=== PATIENT | female | born 1990 | race American Indian/Alaskan Native ===

== ENCOUNTER 2016-11-20 05:51 | Inpatient (IN) | payer MEDICAID, OTHER ==
[2016-11-20] MEDS ORDERED: Naloxone 2 MG/2 ML Syringe IVPUSH PRN (06:15)
[2016-11-20] MEDS ORDERED: Carboprost Tromethamine 250 MCG/1 ML Amp IM ONE (06:15)
[2016-11-20] MEDS ORDERED: Methylergonovine 0.2 MG/1 ML Amp IM PRN (06:15)
[2016-11-20] MEDS ORDERED: ePHEDrine 50 MG/ML SDV IVPUSH PRN (06:15)
[2016-11-20] MEDS ORDERED: Acetaminophen 325 MG Tab PO PRN (06:15)
[2016-11-20] MEDS ORDERED: Measles, Mumps & Rubella Vaccine 0.5 ML SDV SUBCUT ONE (06:15)
[2016-11-20] MEDS ORDERED: Oxytocin/Normal Saline 30 UNIT/500 ML BAG IV SCH (06:15)
[2016-11-20] MEDS ORDERED: Citric Acid/Sodium Citrate Solution 30 ML Cup PO ONE ×2 (06:15→08:18)
[2016-11-20] MEDS ORDERED: ceFAZolin 2 GM in Premix Bag 1 BAG IV ONE (06:15)
[2016-11-20] MEDS ORDERED: Misoprostol 400 MCG (4 X 100 MCG TAB) RECTAL PRN (06:15)
[2016-11-20] MEDS ORDERED: Ondansetron 4 MG/2 ML SDV IV PRN (06:15)
[2016-11-20] MEDS ORDERED: diphenhydrAMINE 50 MG/ML SDV IVPUSH PRN (06:15)
[2016-11-20] MEDS: Lactated Ringers 1,000 ML IV SCH ×4 (07:28→17:57)
[2016-11-20] MEDS ORDERED: Oxytocin/Normal Saline 60 UNIT/1,000 ML BAG ONE (08:56)
--- NOTE | 2016-11-20 10:51 | PCM.PREANE ---
Preanesthetic Assessment - Anesthesia/Transfusion/Family Hx Anesthesia History: Prior Anesthesia Without Reaction Family History of Anesthesia Reaction: No Transfusion History: Prior Transfusion Without Reaction Intubation History: Unknown - Review of Systems General: No Symptoms Pulmonary: No Symptoms Cardiovascular: No Symptoms Gastrointestinal: No symptoms Neurological: No Symptoms Other: Reports: None (Obesity ) - Physical Assessment NPO Status Date: 11/19/16 NPO Status Time: 22:30 Respiratory Rate: 16 Vital Signs: Last Vital Signs Temp 36.7 C 11/20/16 05:58 Pulse 82 11/20/16 05:58 Resp 16 11/20/16 05:58 BP 116/64 11/20/16 05:58 Pulse Ox Height: 1.8 m Weight: 134.263 kg ASA Class: 3 Mental Status: Alert & Oriented x3 Airway Class: Mallampati = 3 Dentition: Reports: Normal Dentition Thyro-Mental Finger Breadths: 2 (Short Neck) Mouth Opening Finger Breadths: 3 ROM/Head Extension: Full Lungs: Clear to auscultation, Normal respiratory effort Cardiovascular: Regular Rate, Regular Rhythm - Lab Values: Laboratory Last Values WBC 8.3 10^3/uL (5.0-10.0) 11/20/16 06:15 RBC 4.39 10^6/uL (4.2-5.4) 11/20/16 06:15 Hgb 11.9 g/dL (12.0-16.0) L 11/20/16 06:15 Hct 36.0 % (37.0-47.0) L 11/20/16 06:15 MCV 82.0 fL (80-100) 11/20/16 06:15 MCH 27.1 pg (27.0-34.0) 11/20/16 06:15 MCHC 33.1 g/dL (33.0-35.0) 11/20/16 06:15 Plt Count 201 10^3/uL (150-450) 11/20/16 06:15 Urine Opiates Screen Negative (NEGATIVE) 11/20/16 06:15 Ur Oxycodone Screen Negative (NEGATIVE) 11/20/16 06:15 Urine Methadone Screen Negative (NEGATIVE) 11/20/16 06:15 Ur Barbiturates Screen Negative (NEGATIVE) 11/20/16 06:15 U Tricyclic Antidepress Negative (NEGATIVE) 11/20/16 06:15 Ur Phencyclidine Scrn Negative (NEGATIVE) 11/20/16 06:15 Ur Amphetamine Screen Negative (NEGATIVE) 11/20/16 06:15 U Methamphetamines Scrn Negative (NEGATIVE) 11/20/16 06:15 Urine MDMA Screen Negative (NEGATIVE) 11/20/16 06:15 U Benzodiazepines Scrn Negative (NEGATIVE) 11/20/16 06:15 Urine Cocaine Screen Negative (NEGATIVE) 11/20/16 06:15 U Marijuana (THC) Screen Negative (NEGATIVE) 11/20/16 06:15 Blood Type A POSITIVE 11/20/16 06:15 Gel Antibody Screen Negative 11/20/16 06:15 - Allergies Allergies/Adverse Reactions: Allergies Allergy/AdvReac Type Severity Reaction Status Date / Time No Known Allergies Allergy Verified 11/20/16 07:09 - Blood Blood Available: No Product(s) Available: None - Anesthesia Plan Pre-Op Medication Ordered: None - Acknowledgements Anesthesia Type Planned: Spinal, MAC Pt an Appropriate Candidate for the Planned Anesthesia: Yes Alternatives and Risks of Anesthesia Discussed w Pt/Guardian: Yes Pt/Guardian Understands and Agrees with Anesthesia Plan: Yes PreAnesthesia Questionnaire - Past Health History Medical/Surgical History: Denies Medical/Surgical History KNOT TIER History: Reports: - Past Surgical History Other Musculoskeletal Surgeries/Procedures:: ankle surgeries - SUBSTANCE USE Smoking Status *Q: Former Smoker Second Hand Smoke Exposure: No Days Per Week of Alcohol Use: 1 Number of Drinks Per Day: 6 Total Drinks Per Week: 6 Recreational Drug Use History: Yes Recreational Drug Type: Reports: Amphetamines (Speed) - HOME MEDS Home Medications: Home Meds Pnv With Ca,No.72/Iron,Carb/FA [ Plus Iron Tablet] 1 tab PO DAILY [History] - CURRENT (IN HOUSE) MEDS Current Meds: Current Medications Acetaminophen (Tylenol) 650 mg PO Q6H PRN PRN Reason: mild pain or fever Diphenhydramine HCl (Benadryl) 25 mg IVPUSH Q6H PRN PRN Reason: Itching or Nausea Docusate Sodium (Colace) 100 mg PO Q12H PRN PRN Reason: Constipation Ephedrine Sulfate (Ephedrine Sulfate) 5 mg IVPUSH SEECOMMENT PRN PRN Reason: Other Ferrous Sulfate (Ferrous Sulfate) 325 mg PO BRK STEF Lactated Ringer's (Ringers, Lactated) 1,000 mls @ 125 mls/hr IV ASDIRECTED STEF Last Admin: 11/20/16 08:12 Dose: 125 mls/hr Oxytocin/Sodium Chloride (Pitocin In Ns 30 Unit/500 Ml) 30 unit in 500 mls @ 500 mls/hr IV TITRATE STEF; 500 MUNITS/MIN PRN Reason: Protocol Ibuprofen (Motrin) 800 mg PO Q8H PRN PRN Reason: mild pain or fever Ketorolac Tromethamine (Toradol) 15 mg IVPUSH Q6H [facility] Stop: 11/20/16 18:16 Methylergonovine Maleate (Methergine) 0.2 mg IM ONETIME PRN PRN Reason: Excessive Vaginal Bleeding Misoprostol (Cytotec) 800 mcg RECTAL ASDIRECTED PRN PRN Reason: Bleeding Naloxone HCl (Narcan) 0.1 mg IVPUSH SEECOMMENT PRN PRN Reason: Respiratory Depression Ondansetron HCl (Zofran) 4 mg IV Q4H PRN PRN Reason: Nausea/Vomiting Oxycodone/Acetaminophen (Percocet 325-5 Mg) 1 tab PO Q4H PRN PRN Reason: Pain (moderate 4-6) Oxycodone/Acetaminophen (Percocet 325-5 Mg) 2 tab PO Q4H PRN PRN Reason: Pain (moderate 4-6) Prenat Multivit/[employer] Research Analyst/Iron/Folic Ac ( Plus Iron) 1 each PO DAILY [facility] Simethicone (Simethicone) 80 mg PO Q4H PRN PRN Reason: Gas Discontinued Medications Carboprost Tromethamine (Hemabate Ds) 250 mcg IM ONETIME ONE Stop: 11/20/16 06:16 Citric Acid/Sodium Citrate (Bicitra Solution) 30 ml PO ONETIME ONE Stop: 11/20/16 06:16 Last Admin: 11/20/16 08:20 Dose: Not Given Citric Acid/Sodium Citrate (Bicitra Solution) 30 ml PO ONETIME ONE Stop: 11/20/16 08:19 Cefazolin Sodium/Dextrose 2 gm (/ Premix) 50 mls @ 100 mls/hr IV ONETIME ONE Stop: 11/20/16 06:44 Oxytocin/Sodium Chloride (Pitocin In Ns 30 Unit/500 Ml) Confirm Administered Dose 60 unit in 1,000 mls @ as directed .ROUTE .STK-MED ONE Stop: 11/20/16 08:57 Measles/Mumps/Rubella Vaccine Live (M-M-R Ii Vaccine) 0.5 ml SUBCUT .ONCE ONE Stop: 11/20/16 06:16
[2016-11-20] MEDS: Docusate Sodium 100 MG Cap PO PRN (14:01)
[2016-11-20] MEDS: Simethicone 80 MG Tab.Chew PO PRN ×2 (14:01→19:51)
[2016-11-20] MEDS: Ferrous Sulfate 325 MG Tab PO SCH ×2 (15:37→16:25)
[2016-11-20] MEDS: Prenatal Multivitamin with Calcium/Folic Acid/Iron Tab PO SCH ×2 (15:38→16:25)
[2016-11-20] MEDS ORDERED: Midazolam 1 MG/ML 2 ML SDV IV ONE (16:11)
[2016-11-20] MEDS ORDERED: ePHEDrine 50 MG/ML SDV IV ONE (16:11)
[2016-11-20] MEDS ORDERED: fentaNYL 100 MCG/2 ML SDV ONE (16:11)
[2016-11-20] MEDS ORDERED: Ondansetron 4 MG/2 ML SDV IV ONE (16:11)
[2016-11-20] MEDS ORDERED: Morphine PF 5 MG/10 ML SDV ONE (16:11)
[2016-11-20] MEDS ORDERED: Ketorolac 30 MG/ML SDV IVPUSH ONE (16:11)
[2016-11-20] MEDS: Ketorolac 30 MG/ML SDV IVPUSH SCH ×2 (17:23→23:23)
[2016-11-20] MEDS ORDERED: Ketorolac 30 MG/ML SDV IVPUSH SCH (17:30)
[2016-11-20] MEDS: Acetaminophen/oxyCODONE 325-5 MG Tab PO PRN ×2 (19:51→20:31)
[2016-11-21] MEDS: Lactated Ringers 1,000 ML IV SCH (02:08)
[2016-11-21] MEDS: Acetaminophen/oxyCODONE 325-5 MG Tab PO PRN ×6 (04:32→22:24)
[2016-11-21] MEDS: Simethicone 80 MG Tab.Chew PO PRN ×6 (04:32→19:36)
[2016-11-21] MEDS: Ketorolac 30 MG/ML SDV IVPUSH SCH (05:38)
[2016-11-21] MEDS: Prenatal Multivitamin with Calcium/Folic Acid/Iron Tab PO SCH (08:45)
[2016-11-21] MEDS: Ferrous Sulfate 325 MG Tab PO SCH (08:45)
[2016-11-21] MEDS: Docusate Sodium 100 MG Cap PO PRN ×2 (08:45→19:36)
--- NOTE | 2016-11-21 08:51 | PCM.PNPP ---
- General Info Date of Service: 11/21/16 (POD # 1 S/P Repeat Section) Functional Status: Reports: pain controlled, tolerating diet - Review of Systems General: Reports: No Symptoms HEENT: Reports: no symptoms Pulmonary: Reports: no symptoms Cardiovascular: Reports: No Symptoms Gastrointestinal: Reports: No symptoms Genitourinary: Reports: no symptoms Musculoskeletal: Reports: no symptoms Skin: Reports: no symptoms Neurological: Reports: No Symptoms Psychiatric: Reports: no symptoms - General Info Date of Service: 11/21/16 (POD # 1 S/P Repeat section) - Patient Data Vital Signs - most recent: Last Vital Signs Temp 96.3 F 11/21/16 04:41 Pulse 85 11/20/16 20:00 Resp 16 11/21/16 04:41 BP 118/68 11/21/16 04:41 Pulse Ox 97 11/21/16 04:41 Weight - most recent: 296 lb I&O - last 24 hours: Intake & Output 11/20/16 11/21/16 11/21/16 22:59 06:59 14:59 Intake Total 2600 1759 Output Total 1525 1350 Balance 1075 409 Lab Results - last 24 hrs: Laboratory Results - last 24 hr 11/21/16 Range/Units 05:45 WBC 7.0 (5.0-10.0) 10^3/uL RBC 3.70 L (4.2-5.4) 10^6/uL Hgb 10.0 L (12.0-16.0) g/dL Hct 30.5 L (37.0-47.0) % MCV 82.4 (80-100) fL MCH 27.0 (27.0-34.0) pg MCHC 32.8 L (33.0-35.0) g/dL Plt Count 149 L (150-450) 10^3/uL Med Orders - Current: Current Medications Acetaminophen (Tylenol) 650 mg PO Q6H PRN PRN Reason: mild pain or fever Diphenhydramine HCl (Benadryl) 25 mg IVPUSH Q6H PRN PRN Reason: Itching or Nausea Last Admin: 11/20/16 13:58 Dose: 25 mg Docusate Sodium (Colace) 100 mg PO Q12H PRN PRN Reason: Constipation Last Admin: 11/21/16 08:45 Dose: 100 mg Ephedrine Sulfate (Ephedrine Sulfate) 5 mg IVPUSH SEECOMMENT PRN PRN Reason: Other Ferrous Sulfate (Ferrous Sulfate) 325 mg PO BRK [facility] Last Admin: 11/21/16 08:45 Dose: 325 mg Lactated Ringer's (Ringers, Lactated) 1,000 mls @ 125 mls/hr IV ASDIRECTED STEF Last Admin: 11/21/16 02:08 Dose: 125 mls/hr Oxytocin/Sodium Chloride (Pitocin In Ns 30 Unit/500 Ml) 30 unit in 500 mls @ 500 mls/hr IV TITRATE STEF; 500 MUNITS/MIN PRN Reason: Protocol Last Titration: 11/20/16 14:30 Dose: 0 munits/min, 0 mls/hr Ibuprofen (Motrin) 800 mg PO Q8H PRN PRN Reason: mild pain or fever Methylergonovine Maleate (Methergine) 0.2 mg IM ONETIME PRN PRN Reason: Excessive Vaginal Bleeding Misoprostol (Cytotec) 800 mcg RECTAL ASDIRECTED PRN PRN Reason: Bleeding Ondansetron HCl (Zofran) 4 mg IV Q4H PRN PRN Reason: Nausea/Vomiting Oxycodone/Acetaminophen (Percocet 325-5 Mg) 1 tab PO Q4H PRN PRN Reason: Pain (moderate 4-6) Last Admin: 11/20/16 20:31 Dose: 1 tab Oxycodone/Acetaminophen (Percocet 325-5 Mg) 2 tab PO Q4H PRN PRN Reason: Pain (moderate 4-6) Last Admin: 11/21/16 08:45 Dose: 2 tab Prenat Multivit/[place]/Iron/Folic Ac ( Plus Iron) 1 each PO DAILY [facility] Last Admin: 11/21/16 08:45 Dose: 1 each Simethicone (Simethicone) 80 mg PO Q4H PRN PRN Reason: Gas Last Admin: 11/21/16 08:45 Dose: 80 mg Discontinued Medications Carboprost Tromethamine (Hemabate Ds) 250 mcg IM ONETIME ONE Stop: 11/20/16 06:16 Last Admin: 11/20/16 16:25 Dose: Not Given Citric Acid/Sodium Citrate (Bicitra Solution) 30 ml PO ONETIME ONE Stop: 11/20/16 06:16 Last Admin: 11/20/16 08:20 Dose: Not Given Citric Acid/Sodium Citrate (Bicitra Solution) 30 ml PO ONETIME ONE Stop: 11/20/16 08:19 Last Admin: 11/20/16 10:00 Dose: 30 ml Ephedrine Sulfate (Ephedrine Sulfate) 30 mg IV .STK-MED ONE Stop: 11/20/16 16:12 Fentanyl (Sublimaze) 100 mcg .XX .STK-MED ONE Stop: 11/20/16 16:12 Cefazolin Sodium/Dextrose 2 gm (/ Premix) 50 mls @ 100 mls/hr IV ONETIME ONE Stop: 11/20/16 06:44 Last Admin: 11/20/16 10:25 Dose: 100 mls/hr Oxytocin/Sodium Chloride (Pitocin In Ns 30 Unit/500 Ml) Confirm Administered Dose 60 unit in 1,000 mls @ as directed .ROUTE .STK-MED ONE Stop: 11/20/16 08:57 Ketorolac Tromethamine (Toradol) 15 mg IVPUSH Q6H [facility] Stop: 11/21/16 05:31 Last Admin: 11/21/16 05:38 Dose: 15 mg Ketorolac Tromethamine (Toradol) 30 mg IVPUSH .STK-MED ONE Stop: 11/20/16 16:12 Measles/Mumps/Rubella Vaccine Live (M-M-R Ii Vaccine) 0.5 ml SUBCUT .ONCE ONE Stop: 11/20/16 06:16 Midazolam HCl (Versed 1 Mg/Ml) 2 mg IV .STK-MED ONE Stop: 11/20/16 16:12 Morphine Sulfate (Duramorph Pf) 0.25 mg .XX .STK-MED ONE Stop: 11/20/16 16:12 Naloxone HCl (Narcan) 0.1 mg IVPUSH SEECOMMENT PRN PRN Reason: Respiratory Depression Stop: 11/20/16 12:00 Ondansetron HCl (Zofran) 8 mg IV .STK-MED ONE Stop: 11/20/16 16:12 - Infant Interaction Disposition, : to Nursery Infant Interaction: Holding Infant Feeding: Bottle Fed - Recovery Exam Fundal Tone: Firm Fundal Level: At Umbilicus Fundal Placement: Midline Lochia Amount: Small Lochia Color: Rubra/Red Perineum Description: Intact, Minimal Bruising/Swelling Urinary Elimination: Indwelling Catheter - Exam General: alert, oriented, cooperative, no acute distress HEENT: Pupils equal, Pupils reactive Neck: supple Lungs: Clear to auscultation, Normal respiratory effort Cardiovascular: Regular Rate, Regular Rhythm, No Murmurs Abdomen: bowel sounds present, soft, tenderness (Incisional discomfort) Extremities: no edema, normal pulses, no tenderness/swelling Skin: warm, dry, intact Wound/Incisions: dressing dry and intact, no drainage Neurological: no new focal deficit, normal speech Psy/Mental Status: alert, normal affect, normal mood - Problem List Review Problem List Initiated/Reviewed/Updated: Yes - Assessment Assessment:: POD/PPD # 1 S/P Repeat section Doing well Incisional pain Clear yellow urine with good output - Plan Plan:: Continue present care Remove jean baptiste catheter Increase ambulation Shower Oral pain medications.
[2016-11-21] MEDS: Ibuprofen 800 MG Tab PO PRN ×2 (13:13→22:25)
[2016-11-21] MEDS ORDERED: Diphtheria,Pertussis(Acell),Tetanus Vaccine 0.5 ML SDV IM ONE (17:22)
[2016-11-22] MEDS: Acetaminophen/oxyCODONE 325-5 MG Tab PO PRN ×4 (04:07→19:50)
[2016-11-22] MEDS: Ibuprofen 800 MG Tab PO PRN ×3 (06:04→21:18)
--- NOTE | 2016-11-22 07:57 | PCM.PNPP ---
- General Info Date of Service: 11/22/16 (PPD/POD # 2 S/P Repeat Section ) Functional Status: Reports: pain controlled, tolerating diet, ambulating, urinating, new symptoms (Dysuria since yesterday. Right calf discomfort to ankle ) - Review of Systems General: Reports: No Symptoms HEENT: Reports: no symptoms Pulmonary: Reports: no symptoms Cardiovascular: Reports: No Symptoms Gastrointestinal: Reports: No symptoms Genitourinary: Reports: no symptoms Musculoskeletal: Reports: leg pain (Right lower leg/ankle pain history of ORIF of right ankle in the past) Skin: Reports: no symptoms Neurological: Reports: No Symptoms Psychiatric: Reports: no symptoms - General Info Date of Service: 11/22/16 (PPD/POD # 2 S/P Repeat Section) - Patient Data Vital Signs - most recent: Last Vital Signs Temp 97.8 F 11/22/16 07:47 Pulse 69 11/22/16 07:47 Resp 16 11/22/16 07:47 BP 114/67 11/22/16 07:47 Pulse Ox 99 11/22/16 07:47 Weight - most recent: 296 lb I&O - last 24 hours: Intake & Output 11/21/16 11/22/16 11/22/16 22:59 06:59 14:59 Intake Total 1000 Balance 1000 Med Orders - Current: Current Medications Acetaminophen (Tylenol) 650 mg PO Q6H PRN PRN Reason: mild pain or fever Diphenhydramine HCl (Benadryl) 25 mg IVPUSH Q6H PRN PRN Reason: Itching or Nausea Last Admin: 11/20/16 13:58 Dose: 25 mg Docusate Sodium (Colace) 100 mg PO Q12H PRN PRN Reason: Constipation Last Admin: 11/21/16 19:36 Dose: 100 mg Ephedrine Sulfate (Ephedrine Sulfate) 5 mg IVPUSH SEECOMMENT PRN PRN Reason: Other Ferrous Sulfate (Ferrous Sulfate) 325 mg PO BRK [facility] Last Admin: 11/21/16 08:45 Dose: 325 mg Lactated Ringer's (Ringers, Lactated) 1,000 mls @ 125 mls/hr IV ASDIRECTED [facility] Last Admin: 11/21/16 02:08 Dose: 125 mls/hr Oxytocin/Sodium Chloride (Pitocin In Ns 30 Unit/500 Ml) 30 unit in 500 mls @ 500 mls/hr IV TITRATE STEF; 500 MUNITS/MIN PRN Reason: Protocol Last Titration: 11/20/16 14:30 Dose: 0 munits/min, 0 mls/hr Ibuprofen (Motrin) 800 mg PO Q8H PRN PRN Reason: mild pain or fever Last Admin: 11/22/16 06:04 Dose: 800 mg Methylergonovine Maleate (Methergine) 0.2 mg IM ONETIME PRN PRN Reason: Excessive Vaginal Bleeding Misoprostol (Cytotec) 800 mcg RECTAL ASDIRECTED PRN PRN Reason: Bleeding Ondansetron HCl (Zofran) 4 mg IV Q4H PRN PRN Reason: Nausea/Vomiting Oxycodone/Acetaminophen (Percocet 325-5 Mg) 1 tab PO Q4H PRN PRN Reason: Pain (moderate 4-6) Last Admin: 11/20/16 20:31 Dose: 1 tab Oxycodone/Acetaminophen (Percocet 325-5 Mg) 2 tab PO Q4H PRN PRN Reason: Pain (moderate 4-6) Last Admin: 11/22/16 04:07 Dose: 2 tab Prenat Multivit/[place]/Iron/Folic Ac ( Plus Iron) 1 each PO DAILY [facility] Last Admin: 11/21/16 08:45 Dose: 1 each Simethicone (Simethicone) 80 mg PO Q4H PRN PRN Reason: Gas Last Admin: 11/21/16 19:36 Dose: 80 mg Discontinued Medications Carboprost Tromethamine (Hemabate Ds) 250 mcg IM ONETIME ONE Stop: 11/20/16 06:16 Last Admin: 11/20/16 16:25 Dose: Not Given Citric Acid/Sodium Citrate (Bicitra Solution) 30 ml PO ONETIME ONE Stop: 11/20/16 06:16 Last Admin: 11/20/16 08:20 Dose: Not Given Citric Acid/Sodium Citrate (Bicitra Solution) 30 ml PO ONETIME ONE Stop: 11/20/16 08:19 Last Admin: 11/20/16 10:00 Dose: 30 ml Diphtheria/Tetanus/Acell Pertussis (Adacel) 0.5 ml IM .ONCE ONE Stop: 11/21/16 17:23 Last Admin: 11/21/16 17:50 Dose: 0.5 ml Ephedrine Sulfate (Ephedrine Sulfate) 30 mg IV .STK-MED ONE Stop: 11/20/16 16:12 Fentanyl (Sublimaze) 100 mcg .XX .STK-MED ONE Stop: 11/20/16 16:12 Cefazolin Sodium/Dextrose 2 gm (/ Premix) 50 mls @ 100 mls/hr IV ONETIME ONE Stop: 11/20/16 06:44 Last Admin: 11/20/16 10:25 Dose: 100 mls/hr Oxytocin/Sodium Chloride (Pitocin In Ns 30 Unit/500 Ml) Confirm Administered Dose 60 unit in 1,000 mls @ as directed .ROUTE .STK-MED ONE Stop: 11/20/16 08:57 Ketorolac Tromethamine (Toradol) 15 mg IVPUSH Q6H [facility] Stop: 11/21/16 05:31 Last Admin: 11/21/16 05:38 Dose: 15 mg Ketorolac Tromethamine (Toradol) 30 mg IVPUSH .STK-MED ONE Stop: 11/20/16 16:12 Measles/Mumps/Rubella Vaccine Live (M-M-R Ii Vaccine) 0.5 ml SUBCUT .ONCE ONE Stop: 11/20/16 06:16 Last Admin: 11/21/16 17:52 Dose: 0.5 ml Midazolam HCl (Versed 1 Mg/Ml) 2 mg IV .STK-MED ONE Stop: 11/20/16 16:12 Morphine Sulfate (Duramorph Pf) 0.25 mg .XX .STK-MED ONE Stop: 11/20/16 16:12 Naloxone HCl (Narcan) 0.1 mg IVPUSH SEECOMMENT PRN PRN Reason: Respiratory Depression Stop: 11/20/16 12:00 Ondansetron HCl (Zofran) 8 mg IV .STK-MED ONE Stop: 11/20/16 16:12 - Infant Interaction Disposition, : [place] in Room with Family Interaction: Holding Infant Infant Feeding: Bottle Fed Infant - Recovery Exam Fundal Tone: Firm Fundal Level: 1 Fingerbreadths Below Umbilicus Fundal Placement: Midline Lochia Amount: Small Lochia Color: Rubra/Red Perineum Description: Intact, Minimal Bruising/Swelling Episiotomy/Laceration: None Bladder Status: Voiding Urinary Elimination: Voided - Exam General: alert, oriented, cooperative, no acute distress HEENT: Pupils equal, Pupils reactive Neck: supple Lungs: Clear to auscultation, Normal respiratory effort Cardiovascular: Regular Rate, Regular Rhythm, No Murmurs Abdomen: bowel sounds present, soft, no tenderness, no distension Extremities: no tenderness/swelling, no calf tenderness, edema (2+ edema in each ankle Non tender to palpation in either calf No enlargement of either calf) , other (No ecchymosis or erythema) Skin: warm, dry, intact Wound/Incisions: healing well, dressing dry and intact, no drainage Neurological: no new focal deficit Psy/Mental Status: alert, normal affect, normal mood - Problem List Review Problem List Initiated/Reviewed/Updated: Yes - My Orders Last 24 Hours: My Active Orders 11/22/16 07:50 URINALYSIS W/MICROSCOPIC [UA W/MICROSCOPIC] [URIN] Timed - Assessment Assessment:: POD/PPD # 2 S/P Repeat section Doing well Incisional pain Dysuria Right lower leg pain which is from calf to ankle this feels better than yesterday with no erythema ecchymosis or enlargement. Non tender to palpation. Negative Homans sign - Plan Plan:: Continue present care U/A pending Watch symptoms of right leg if worsens or has increased edema or any changes will consider duplex doppler of leg tomorrow
[2016-11-22] MEDS: Ferrous Sulfate 325 MG Tab PO SCH (08:01)
[2016-11-22] MEDS: Prenatal Multivitamin with Calcium/Folic Acid/Iron Tab PO SCH (08:02)
[2016-11-22] MEDS: Simethicone 80 MG Tab.Chew PO PRN ×3 (08:02→19:50)
[2016-11-22] MEDS: Docusate Sodium 100 MG Cap PO PRN ×2 (08:03→19:49)
[2016-11-23] MEDS: Acetaminophen/oxyCODONE 325-5 MG Tab PO PRN ×2 (03:56→10:04)
[2016-11-23] MEDS: Ferrous Sulfate 325 MG Tab PO SCH (07:50)
[2016-11-23] MEDS: Docusate Sodium 100 MG Cap PO PRN (07:50)
[2016-11-23] MEDS: Ibuprofen 800 MG Tab PO PRN (07:50)
[2016-11-23] MEDS: Prenatal Multivitamin with Calcium/Folic Acid/Iron Tab PO SCH (08:33)
[2016-11-23 08:44] VITALS: BP 111/63
--- NOTE | 2016-11-23 08:58 | OR ---
DATE: 11/20/2016 PREOPERATIVE DIAGNOSES: 1. Intrauterine at 39 weeks by 23-5/7 weeks ultrasound. 2. Previous section. 3. Request for repeat low transverse section. 4. Positive urine drug screen for amphetamines on 10/19/2016, at [facility], negative upon admission. 5. Group B streptococcus positive. 6. Urinary tract infection in -treated. 7. Hepatitis C positive. 8. Insufficient care. 9. 3, para 2-0-0-2. POSTOPERATIVE DIAGNOSES: 1. Intrauterine at 39 weeks by 23-5/7 weeks ultrasound. 2. Previous section-delivered. 3. Request for repeat low transverse section. 4. Positive urine drug screen for amphetamines on 10/19/2016, at [facility], negative upon admission. 5. Group B streptococcus positive. 6. Urinary tract infection in -treated. 7. Hepatitis C positive. 8. Insufficient care. 9. 3, para 2-0-0-2. 10.Scar tissue superficial to the fascia with recommendation for LEAD RIDER to be available with next section if possible. PROCEDURE PERFORMED: NST followed by repeat low transverse . ANESTHESIA: Spinal. ESTIMATED BLOOD LOSS: 800 mL. IV FLUIDS: 1200 mL. URINE OUTPUT: 100 mL clear and yellow. START: 1045. UTERINE INCISION: 1053. DELIVERY: 1054. STOP: 1115. FINDINGS: Female, scores of 9 and 9, weight pending. DESCRIPTION OF PROCEDURE IN DETAIL: After proper consent was obtained, the patient was brought to the operating room where spinal anesthetic was administered. A Carcamo was placed in preop under sterile conditions. Abdomen was prepped and draped in normal sterile fashion with placed in the supine position with left lateral tilt. A skin incision was then made over lower abdomen in transverse Pfannenstiel-type fashion over previous scar. This was carried down to the fascia and scored in the midline. Subcutaneous tissue was raked laterally with Gray retractor and fascial incision was extended in transverse fashion using electrocautery. Of note, there was significant amount of scar tissue around this area. Luz Maria clamps x2 were then used to grasp the superior aspect of fascia, and rectus muscles were dissected from fascia using sharp and blunt technique. In a similar fashion, Luz Maria clamps x2 were used to grasp the inferior portion of the incision and rectus and pyramidalis muscles were dissected from the fascia using sharp and blunt technique. Rectus muscles were in midline with blunt technique. Abdominal cavity was entered in blunt technique and incision was extended superiorly and inferiorly using blunt technique. Terry O retractor was then introduced and used. Lower uterine segment was identified and curvilinear incision was made on the lower uterine segment at 1053 hours. Uterus was entered sharply. Uterine incision was then extended in a transverse fashion using blunt technique. Bulging bag of water was then ruptured bluntly. vertex was then delivered through the incision, followed by rest of the infant without difficulty. Mouth and nares were suctioned. Cord was doubly clamped and cut, and brought over to team. Then, approximately 10 mL of cord blood was obtained for labs. Placenta then delivered with gentle cord traction and fundal massage. Uterine cavity was then cleared of all blood clots and debris with lap sponge. Harris clamps were used to grasp the uterine incision. This was closed in a running locked fashion, tied at lateral margins with 1-0 Vicryl. Right at the midline, there was some bleeding and one [id number] stitch was applied and hemostasis reassured. First inspection of the uterine incision revealed hemostasis. Terry O retractor was then removed and paracolic gutters were then cleared of all blood clots and debris with lap sponge. Anterior cul-de-sac was then irrigated copiously. All blood clots and debris removed. Second and final inspection of the uterine incision and anterior cul-de-sac revealed hemostasis. Rectus muscles were then reapproximated in midline with a [id number] stitch using 1-0 Vicryl. Subfascial tissue was found to be hemostatic. Fascia closed in a running fashion, tied at lateral margins with 0 looped PDS. Subcutaneous tissue was irrigated copiously. Hemostasis was reassured. Skin was reapproximated with medium matt. Sterile Aquacel dressing was applied. Uterine fundus was firm and massaged at conclusion of the case around the umbilicus with obesity noted. No immediate complications noted. Sponge, lap, and needle were correct. The patient received 2 g of Ancef preoperatively. Pitocin per protocol, and will receive Toradol at the conclusion of the case for pain control. Mother and infant are currently stable at time of dictation. [facility] /[id number]
--- NOTE | 2016-11-23 09:10 | OBOUT ---
DATE: 11/20/2016 DATE AND TIME OF NST: Date: 11/20/2016. Time: 06:35 to 06:55. REASON FOR NST: 1. Intrauterine at 39 weeks by 23 and 5/7th weeks ultrasound. 2. Previous x2, requests repeat low transverse . 3. Positive UDS for amphetamines on 10/19/2016, at [facility]. 4. GBS positive. 5. UTI in the - treated. 6. Hep C positive. 7. Insufficient care. 8. 3, para P2-0-0-2. NST INTERPRETATION: During this time period, heart tone baseline is approximately 125 to 135, and there are at least two 15 x 15 beat per minute accelerations, making this strip reactive. It is also noted to be reassuring. Tocometer reveals potential of 4 to 5 contractions felt by the patient. ASSESSMENT/PLAN: 1. Non-stress test-reactive and reassuring. 2. Tocometer with contractions. PLAN: Please see admit history and physical for further details. We will plan on proceeding to the operating room for repeat low transverse after current case. Current case is ongoing as this is being dictated. To update her history and physical, blood pressure 116/64, heart rate 82, and temperature 98. The patient feels her contractions, and we will proceed as above. [facility] /[id number]
--- NOTE | 2016-11-23 18:08 | PCM.POSTAN ---
POST ANESTHESIA ASSESSMENT - MENTAL STATUS Mental Status: alert, oriented - VITAL SIGNS Pulse Rate: 90 SaO2: 98 Resp Rate: 20 Blood Pressure: 134/83 Temperature: 36.8 C - RESPIRATORY Respiratory Status: respiratory rate WNL, airway patent, O2 saturation stable - CARDIOVASCULAR CV Status: pulse rate WNL, blood pressure stable - GASTROINTESTINAL GI Status: no symptoms - PAIN Pain Score: 0 - POST OP HYDRATION Hydration Status: adequate & stable (Patient is recovering well sitting in bed. Deny nausea or pain.)
--- NOTE | 2016-11-24 09:44 | DISCH ---
ADMISSION DIAGNOSES: 1. Intrauterine at 39 weeks by 23-5/7 weeks' ultrasound. 2. Previous section x2, requests repeat low transverse section. 3. Positive urine drug screen for amphetamines on 10/19/2016, at [facility], negative upon admission. 4. Group B Streptococcus positive. 5. Urinary tract infection in the -treated. 6. Hepatitis C positive status. 7. Insufficient care. 8. 3, para 2-0-0-2, now 3, para 3-0-0-3. DISCHARGE DIAGNOSES: 1. Intrauterine at 39 weeks by 23-5/7 weeks' ultrasound-delivered. 2. Previous section x2, requests repeat low transverse section-delivered. 3. Positive urine drug screen for amphetamines on 10/19/2016, [facility], negative upon admission. 4. Group B Streptococcus positive. 5. Urinary tract infection in the -treated. 6. Hepatitis C positive status. 7. Insufficient care. 8. 3, para 2-0-0-2, now 3, para 3-0-0-3. 9. Significant scar tissue superficial to the fascia with recommendation for QUALITY ASSURANCE CALIBRATOR to be present with next delivery with section. 10.Anemia of acute blood loss with hemoglobin dropping down to 10 from 11.9, and thrombocytopenia with last platelet count being 149,000. PROCEDURE PERFORMED: NST, followed by repeat low transverse per Dr. Mccurdy. HISTORY OF PRESENT ILLNESS: Please see H and P. SUMMARY OF HOSPITAL COURSE: Patient was admitted on the above date with the above diagnoses, underwent an elective repeat low transverse under spinal anesthetic with an EBL of 800 mL, yielding a female with scores 9 and 9, weighing 7 pounds 5 ounces with significant amount of scar tissue superficial to fascia with recommendation noted as above. Postop day #1 and 2, please see progress notes done with Dr. Pinto. Postop day #3, date of discharge, the patient was tolerating p.o., ambulating, urinating, passing flatus, and requesting discharge. PHYSICAL EXAMINATION: Vital Signs: Last set of vitals updated and listed in the chart. Temperature 98.2, heart rate 68, blood pressure 124/68, respiratory rate is 18. Lungs: Clear to auscultation bilaterally. Heart: S1, S2. Regular rate and rhythm. Abdomen: Obese. Firm uterus around the umbilicus. Aquacel dressing appears dry and intact. No calf pain elicited. The patient did have some pressure with urination, had a urinalysis done, reviewed by Dr. Pinto, not concerning for infection with 0-5 white cells per high-power field. CONDITION ON DISCHARGE COMPARED TO CONDITION ON ADMISSION: Improved. DISCHARGE INSTRUCTIONS: Diet as tolerated. Activity, no lifting more than 10 to 20 pounds. No sit ups, straining, and pelvic rest for the next 6 weeks with immediate return to fertility discussed with the patient. Reasons to return or go to the emergency room discussed with the patient in detail including temperature greater than 100.4, foul-smelling discharge, red, hot tender breasts, or increased vaginal bleeding. DISCHARGE MEDICATIONS: 1. [id number] ibuprofen for pain. 2. Iron sulfate 325 b.i.d. x6 weeks. 3. Percocet 5/325 one to two q.6 hours p.r.n., #30, no refills. Discussed the use of this medications, adverse and wanted effects, as well as precautions with driving. FOLLOW UP: On 11/25/2016, for staple removal. I did discuss the importance of followup and ramifications of not doing so as well as reasons to return or go to the emergency room in regard to her . The patient understands and agrees with the above treatment plan. [facility] /[id number]
== END 2016-11-23 11:30 | disposition home or self-care (01) | DRG 765 ==
LOC: DL.MS 05:51 → EDSTATUS 09:30 → OBSVTOIN 10:54 → DL.MS 10:54
PROVIDERS: ADMIT Family Medicine; ATTEND Family Medicine
PROC: 10D00Z1 Extraction of Products of Conception, Low, Open Approach (ICD-10-PCS; principal; 2016-11-20)
DX: Z34.83 Encounter for supervision of other normal pregnancy, third trimester (principal); O34.211 Maternal care for low transverse scar from previous cesarean delivery; O98.42 Viral hepatitis complicating childbirth; D62 Acute posthemorrhagic anemia; O99.824 Streptococcus B carrier state complicating childbirth; O99.02 Anemia complicating childbirth; O72.3 Postpartum coagulation defects; B19.20 Unspecified viral hepatitis C without hepatic coma; Z86.59 Personal history of other mental and behavioral disorders; M79.661 Pain in right lower leg; D69.6 Thrombocytopenia, unspecified; Z87.891 Personal history of nicotine dependence; Z37.0 Single live birth; Z3A.39 39 weeks gestation of pregnancy
CPT/HCPCS: 01961; 36415; 59025; 80305; 81001; 85027; 86850; 86900; 86901; 90707; 90715; A9270-GY; J0690; J1200; J1885; J2250; J2274; J2405; J2590; J3010; J7120

== ENCOUNTER 2017-03-10 21:38 | Emergency (ER) | payer MEDICAID, OTHER ==
[2017-03-10 22:11] VITALS: BP 101/65
[2017-03-10 22:24] LABS: CHLORIDE,CL 112 mmol/L (101-111); SODIUM,NA 147 mmol/L (135-145)
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
== END 2017-03-11 00:04 | disposition left against medical advice (07) ==
LOC: DL.ED 21:38
DX: F10.129 Alcohol abuse with intoxication, unspecified (principal); M25.511 Pain in right shoulder; R21 Rash and other nonspecific skin eruption; Y90.8 Blood alcohol level of 240 mg/100 ml or more; V89.2XXA Person injured in unspecified motor-vehicle accident, traffic, initial encounter
CPT/HCPCS: 36415; 70450; 72125; 73020; 80053; 80305; 81025; 85025; 99284; G0480

== ENCOUNTER 2019-04-18 23:59 | Emergency (ER) | payer MEDICAID ==
[2019-04-19 00:42] LABS: ANION GAP 11.6; CHLORIDE,CL 101 mmol/L (101-111); SODIUM,NA 136 mmol/L (135-145)
[2019-04-19] MEDS ORDERED: Vancomycin 2 GM in Sodium Chloride 0.9% 500 ML IV ONE (00:58)
--- NOTE | 2019-04-19 01:04 | EDM.PDOC ---
ED HPI GENERAL MEDICAL PROBLEM - General Chief Complaint: Skin Complaint Stated Complaint: AMBULANCE Time Seen by Provider: 04/19/19 00:35 Source of Information: Reports: Patient History Limitations: Reports: No Limitations - History of Present Illness INITIAL COMMENTS - FREE TEXT/NARRATIVE: This 28 yo female patient reports to the ED with left lower abdomen pain and inflammation. The patient reports she thinks she was bitten by a spider on , was seen in the ED on 04/16/19, was given a dose of IV Vanco on 04/16/19 and discharged with scripts for Clindamycin and Doxycycline. The patient reports she has been taking the medications as prescribed, but has noticed increased pain and redness throughout the left lower abdomen. The patient called the ambulance today due to increased symptoms. The patient reports she does have a history of MRSA. Onset Date: 04/15/19 Duration: Constant, Getting Worse Location: Reports: Abdomen (left lower abdomen) Quality: Reports: Ache, Sharp, Stabbing Severity: Severe Improves with: Reports: None Worsens with: Reports: None Context: Reports: Other Associated Symptoms: Reports: No Other Symptoms Treatments IMPOSER: Reports: Acetaminophen, NSAIDS Left Lower Abdomen Pain Score (Numeric/FACES): 7 - Related Data Allergies Allergy/AdvReac Type Severity Reaction Status Date / Time No Known Allergies Allergy Verified 04/19/19 00:19 Home Meds: Home Meds Ferrous Sulfate [Iron] 325 mg PO DAILY 04/19/19 [History] Past Medical History - Past Health History Medical/Surgical History: Denies 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: Endocrine/Metabolic History: Reports: Obesity/BMI 30+ - Infectious Disease History Infectious Disease History: Reports: MRSA - Past Surgical History Other Musculoskeletal Surgeries/Procedures:: ankle surgeries Social & Family History - Family History Family Medical History: Unobtainable - Tobacco Use Smoking Status *Q: Light Tobacco Smoker Years of Tobacco use: 10 Packs/Tins Daily: 0.4 - Caffeine Use Caffeine Use: Reports: Soda - Recreational Drug Use Drug Use in Last 12 Months: Yes Recreational Drug Type: Reports: Methamphetamine - Living Situation & Occupation Living situation: Reports: with Family Occupation: Unemployed ED ROS GENERAL - Review of Systems Review Of Systems: ROS reveals no pertinent complaints other than HPI. ED EXAM, SKIN/RASH Exam: See Below Exam Limited By: No Limitations General Appearance: Alert, Moderate Distress, Obese Eye Exam: Bilateral Eye: EOMI, Normal Inspection, PERRL Ears: Normal External Exam, Normal Canal, Hearing Grossly Normal, Normal TMs Nose: Normal Inspection, Normal Mucosa, No Blood Throat/Mouth: Normal Inspection, Normal Lips, Normal Teeth, Normal Gums, Normal Oropharynx, Normal Voice, No Airway Compromise Head: Atraumatic, Normocephalic Neck: Normal Inspection, Supple, Non-Tender, Full Range of Motion Respiratory/Chest: No Respiratory Distress, Lungs Clear, Normal Breath Sounds, No Accessory Muscle Use, Chest Non-Tender Cardiovascular: Normal Peripheral Pulses, Regular Rate, Rhythm, No Edema, No Gallop, No JVD, No Murmur, No Rub GI/Abdominal: Normal Bowel Sounds, Tender (left lower abdomen (area of induration measuring 7 inches by 4 inches) with surrounding erythematous tissue) (Female) Exam: Deferred Rectal (Female) Exam: Deferred Back Exam: Normal Inspection, Full Range of Motion, NT Extremities: Normal Inspection, Normal Range of Motion, Non-Tender, No Pedal Edema, Normal Capillary Refill Neurological: Alert, Oriented, CN II-XII Intact, Normal Cognition, Normal Gait, Normal Reflexes, No Motor/Sensory Deficits Psychiatric: Normal Affect, Normal Mood Skin: Erythema (LLQ), Increased Warmth (LLQ) Location, Skin: Abdomen (LLQ) Characteristics: Erythematous, Other Associated features: Warmth, Tenderness, Induration (7 inches by 4 inches), Inflammation. No: Crusting, Weeping Lymphatic: No Adenopathy Course - Vital Signs Last Recorded V/S: Last Vital Signs Temp 37.2 C 04/19/19 00:04 Pulse 112 H 04/19/19 00:04 Resp 18 04/19/19 00:04 BP 115/89 04/19/19 00:04 Pulse Ox 97 04/19/19 00:04 - Orders/Labs/Meds Orders: Active Orders 24 hr Category Date Time Status CULTURE BLOOD [BC] Stat Lab 04/19/19 00:14 Received CULTURE BLOOD [BC] Stat Lab 04/19/19 00:39 Received Vancomycin 2 gm Med 04/19/19 00:58 Ordered Sodium Chloride 0.9% [Normal Saline] 500 ml IV ONETIME Blood Culture x2 Reflex Set [OM.PC] Stat Oth 04/19/19 00:10 Ordered Labs: Laboratory Tests 04/19/19 04/19/19 04/19/19 Range/Units 00:14 00:14 00:14 WBC 13.5 H (5.0-10.0) 10^3/uL RBC 4.15 L (4.2-5.4) 10^6/uL Hgb 9.4 L (12.0-16.0) g/dL Hct 30.1 L (37.0-47.0) % MCV 72.5 L (80-100) fL MCH 22.7 L (27.0-34.0) pg MCHC 31.2 L (33.0-35.0) g/dL Plt Count 283 (150-450) 10^3/uL Neut % (Auto) 77.4 H (42.2-75.2) % Lymph % (Auto) 11.9 L (20.5-50.1) % [place] % (Auto) 8.0 (2-8) % Eos % (Auto) 2.5 (1.0-3.0) % Baso % (Auto) 0.2 (0.0-1.0) % Sodium 136 (135-145) mmol/L Potassium 3.6 (3.6-5.0) mmol/L Chloride 101 (101-111) mmol/L Carbon Dioxide 27.0 (21.0-31.0) mmol/L Anion Gap 11.6 BUN 7 (7-18) mg/dL Creatinine 0.6 (0.6-1.3) mg/dL Est Cr Clr Drug Dosing 154.63 mL/min Estimated GFR (MDRD) > 60 BUN/Creatinine Ratio 11.66 Glucose 122 H (74-105) mg/dL Lactic Acid 1.1 (0.5-2.2) mmol/L Calcium 8.2 L (8.4-10.2) mg/dl Total Bilirubin 0.6 (0.2-1.0) mg/dL AST 15 (10-42) IU/L ALT 12 (10-60) IU/L Alkaline Phosphatase 72 (42-121) IU/L Total Protein 7.2 (6.7-8.2) g/dl Albumin 3.0 L (3.2-5.5) g/dl Globulin 4.2 Albumin/Globulin Ratio 0.71 Departure - Departure Time of Disposition: 01:04 Disposition: DC/Tfer to Acute Hospital 02 Condition: Poor Clinical Impression: Cellulitis of left abdominal wall, Abscess - Discharge Information *PRESCRIPTION DRUG MONITORING PROGRAM REVIEWED*: Not Applicable *COPY OF PRESCRIPTION DRUG MONITORING REPORT IN PATIENT SHANNAN: Not Applicable Care Plan Goals: Discussed the patient's history, previous visit, treatments, progression of symptoms and lab results with Dr. Haines (Hospitalist with [facility] in [place]) . Dr. Haines accepted the patient for continued evaluation and further management as an observation patient at [facility] in [place]. The patient was given IV Vancomycin prior to transport to [facility] in [place]. The patient will be transported by [facility]. - My Orders Last 24 Hours: My Active Orders 04/19/19 00:10 Blood Culture x2 Reflex Set [OM.PC] Stat 04/19/19 00:14 CULTURE BLOOD [BC] Stat 04/19/19 00:39 CULTURE BLOOD [BC] Stat 04/19/19 00:58 Vancomycin 2 gm Sodium Chloride 0.9% [Normal Saline] 500 ml IV ONETIME - Assessment/Plan Last 24 Hours: My Active Orders 04/19/19 00:10 Blood Culture x2 Reflex Set [OM.PC] Stat 04/19/19 00:14 CULTURE BLOOD [BC] Stat 04/19/19 00:39 CULTURE BLOOD [BC] Stat 04/19/19 00:58 Vancomycin 2 gm Sodium Chloride 0.9% [Normal Saline] 500 ml IV ONETIME
[2019-04-19 01:06] VITALS: BP 111/66; PULSE 109
== END 2019-04-19 01:28 ==
LOC: DL.ED 23:59
DX: L02.211 Cutaneous abscess of abdominal wall (principal); L03.311 Cellulitis of abdominal wall; F17.210 Nicotine dependence, cigarettes, uncomplicated; E66.9 Obesity, unspecified; Z68.36 Body mass index [BMI] 36.0-36.9, adult; Z79.899 Other long term (current) drug therapy
CPT/HCPCS: 36415; 80053; 83605; 85025; 87040; 96365; 99285; J3370; J7040

== ENCOUNTER 2019-07-20 15:34 | Emergency (ER) | payer MEDICAID ==
[2019-07-20 15:39] VITALS: BP 156/124; PULSE 94
[2019-07-20] MEDS ORDERED: LORazepam 2 MG/ML Syringe IM ONE (15:53)
[2019-07-20 16:29] LABS: ANION GAP 14.4; CHLORIDE,CL 104 mmol/L (101-111); SODIUM,NA 139 mmol/L (135-145)
--- NOTE | 2019-07-20 17:24 | EDM.PDOCBH ---
Scribed by Jyothi You 07/20/19 [id number] for Dimitrios Frank MD ED HPI GENERAL MEDICAL PROBLEM - General Chief Complaint: Behavioral/Psych Stated Complaint: AMBULANCE Time Seen by Provider: 07/20/19 15:36 Source of Information: Reports: Patient, EMS, EMS Notes Reviewed, RN, RN Notes Reviewed - History of Present Illness INITIAL COMMENTS - FREE TEXT/NARRATIVE: Patient presents to the ER by [facility] with bad anxiety that started at 12:00. She can't relax so chest is tight, thinks her heart is racing, and states was going to lay down when this started. She denies pain. 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 ED EXAM, BEHAVIORAL HEALTH - Physical Exam Exam: See Below Exam Limited By: No Limitations General Appearance: Alert, WD/WN, No Apparent Distress Eye Exam: Bilateral Eye: EOMI, Normal Inspection, PERRL Ears: Normal External Exam, Normal Canal, Hearing Grossly Normal, Normal TMs Nose: Normal Inspection, Normal Mucosa, No Blood Throat/Mouth: Normal Inspection, Normal Lips, Normal Teeth, Normal Gums, Normal Oropharynx, Normal Voice, No Airway Compromise Head: Atraumatic, Normocephalic Neck: Normal Inspection, Supple, Non-Tender, Full Range of Motion Respiratory/Chest: No Respiratory Distress, Lungs Clear, Normal Breath Sounds, No Accessory Muscle Use, Chest Non-Tender Cardiovascular: Normal Peripheral Pulses, Regular Rate, Rhythm, No Edema, No Gallop, No JVD, No Murmur, No Rub GI/Abdominal: Normal Bowel Sounds, Soft, Non-Tender, No Organomegaly, No Distention, No Abnormal Bruit, No Mass (Female) Exam: Deferred Rectal (Female) Exam: Deferred Back Exam: Normal Inspection, Full Range of Motion, NT Extremities: Normal Inspection, Normal Range of Motion, Non-Tender, Normal Capillary Refill, No Pedal Edema Neurological: Alert, Normal Mood/Affect, CN II-XII Intact, Normal Cognition, Normal Gait, Normal Reflexes, No Motor/Sensory Deficits, Oriented x 3 Psychiatric: Tearful, Other (anxious). No: Flight of Ideas, Homicidal Thoughts , Suicidal Plan, Suicidal Thoughts, Auditory Hallucinations, Visual Hallucinations Skin Exam: Warm, Dry, Intact, Normal color, No rash COURSE, BEHAVIORAL HEALTH COMP - Course Vital Signs: Last Vital Signs Temp 98.1 F 07/20/19 15:34 Pulse 94 07/20/19 15:34 Resp 24 H 07/20/19 15:34 BP 156/124 H 07/20/19 15:34 Pulse Ox 100 07/20/19 15:34 Orders, Labs, Meds: Laboratory Tests 07/20/19 07/20/19 07/20/19 Range/Units 16:03 16:03 16:42 WBC 7.8 (5.0-10.0) 10^3/uL RBC 4.78 (4.2-5.4) 10^6/uL Hgb 11.1 L D (12.0-16.0) g/dL Hct 35.6 L (37.0-47.0) % MCV 74.5 L (80-100) fL MCH 23.2 L (27.0-34.0) pg MCHC 31.2 L (33.0-35.0) g/dL Plt Count 318 (150-450) 10^3/uL Neut % (Auto) 69.0 (42.2-75.2) % Lymph % (Auto) 20.0 L (20.5-50.1) % [place] % (Auto) 7.7 (2-8) % Eos % (Auto) 2.9 (1.0-3.0) % Baso % (Auto) 0.4 (0.0-1.0) % Sodium 139 (135-145) mmol/L Potassium 3.4 L (3.6-5.0) mmol/L Chloride 104 (101-111) mmol/L Carbon Dioxide 24.0 (21.0-31.0) mmol/L Anion Gap 14.4 BUN 6 L (7-18) mg/dL Creatinine 0.6 (0.6-1.3) mg/dL Est Cr Clr Drug Dosing 153.24 mL/min Estimated GFR (MDRD) > 60 BUN/Creatinine Ratio 10.00 Glucose 102 (74-105) mg/dL Calcium 8.2 L (8.4-10.2) mg/dl Total Bilirubin 0.6 (0.2-1.0) mg/dL AST 31 (10-42) IU/L ALT 32 (10-60) IU/L Alkaline Phosphatase 86 (42-121) IU/L Total Protein 8.3 H (6.7-8.2) g/dl Albumin 3.8 (3.2-5.5) g/dl Globulin 4.5 Albumin/Globulin Ratio 0.84 Urine Color (YELLOW) Urine Appearance (CLEAR) Urine pH (5.0-9.0) Ur Specific [place] (1.005-1.030) Urine Protein (NEGATIVE) Urine Glucose (UA) (NEGATIVE) Urine Ketones (NEGATIVE) Urine Occult Blood (NEGATIVE) Urine Nitrite (NEGATIVE) Urine Bilirubin (NEGATIVE) Urine Urobilinogen (0.2-1.0) mg/dL Ur Leukocyte Esterase (NEGATIVE) Urine HCG, Qual Negative Urine Opiates Screen (NEGATIVE) Ur Oxycodone Screen (NEGATIVE) Urine Methadone Screen (NEGATIVE) Ur Barbiturates Screen (NEGATIVE) U Tricyclic Antidepress (NEGATIVE) Ur Phencyclidine Scrn (NEGATIVE) Ur Amphetamine Screen (NEGATIVE) U Methamphetamines Scrn (NEGATIVE) Urine MDMA Screen (NEGATIVE) U Benzodiazepines Scrn (NEGATIVE) Urine Cocaine Screen (NEGATIVE) U Marijuana (THC) Screen (NEGATIVE) Ethyl Alcohol < 5 mg/dL 07/20/19 07/20/19 Range/Units 16:42 16:42 WBC (5.0-10.0) 10^3/uL RBC (4.2-5.4) 10^6/uL Hgb (12.0-16.0) g/dL Hct (37.0-47.0) % MCV (80-100) fL MCH (27.0-34.0) pg MCHC (33.0-35.0) g/dL Plt Count (150-450) 10^3/uL Neut % (Auto) (42.2-75.2) % Lymph % (Auto) (20.5-50.1) % Mason % (Auto) (2-8) % Eos % (Auto) (1.0-3.0) % Baso % (Auto) (0.0-1.0) % Sodium (135-145) mmol/L Potassium (3.6-5.0) mmol/L Chloride (101-111) mmol/L Carbon Dioxide (21.0-31.0) mmol/L Anion Gap BUN (7-18) mg/dL Creatinine (0.6-1.3) mg/dL Est Cr Clr Drug Dosing mL/min Estimated GFR (MDRD) BUN/Creatinine Ratio Glucose (74-105) mg/dL Calcium (8.4-10.2) mg/dl Total Bilirubin (0.2-1.0) mg/dL AST (10-42) IU/L ALT (10-60) IU/L Alkaline Phosphatase (42-121) IU/L Total Protein (6.7-8.2) g/dl Albumin (3.2-5.5) g/dl Globulin Albumin/Globulin Ratio Urine Color Yellow (YELLOW) Urine Appearance Clear (CLEAR) Urine pH 6.5 (5.0-9.0) Ur Specific [place] 1.025 (1.005-1.030) Urine Protein Negative (NEGATIVE) Urine Glucose (UA) Negative (NEGATIVE) Urine Ketones Negative (NEGATIVE) Urine Occult Blood Negative (NEGATIVE) Urine Nitrite Negative (NEGATIVE) Urine Bilirubin Negative (NEGATIVE) Urine Urobilinogen 0.2 (0.2-1.0) mg/dL Ur Leukocyte Esterase Negative (NEGATIVE) Urine HCG, Qual Urine Opiates Screen Negative (NEGATIVE) Ur Oxycodone Screen Negative (NEGATIVE) Urine Methadone Screen Negative (NEGATIVE) Ur Barbiturates Screen Negative (NEGATIVE) U Tricyclic Antidepress Negative (NEGATIVE) Ur Phencyclidine Scrn Negative (NEGATIVE) Ur Amphetamine Screen Negative (NEGATIVE) U Methamphetamines Scrn Positive H (NEGATIVE) Urine MDMA Screen Negative (NEGATIVE) U Benzodiazepines Scrn Negative (NEGATIVE) Urine Cocaine Screen Negative (NEGATIVE) U Marijuana (THC) Screen Negative (NEGATIVE) Ethyl Alcohol mg/dL Medications Discontinued Medications Generic Name Dose Route Start Last Admin Trade Name Lorena PRN Reason Stop Dose Admin Lorazepam 2 mg 07/20/19 15:53 07/20/19 15:58 Ativan IM 07/20/19 15:54 2 mg ONETIME ONE Administration Departure - Departure Time of Disposition: 17:23 Disposition: Home, Self-Care 01 Condition: Good Clinical Impression: Anxiety - Discharge Information *PRESCRIPTION DRUG MONITORING PROGRAM REVIEWED*: No *COPY OF PRESCRIPTION DRUG MONITORING REPORT IN PATIENT SHANNAN: No Instructions: Panic Attack Forms: ED Department Discharge Additional Instructions: Abstain from alcohol consumption. Drink plenty of water and rest. Sepsis Event Note - Focused Exam Vital Signs: Vital Signs Temp Pulse Resp BP Pulse Ox 07/20/19 15:34 98.1 F 94 24 H 156/124 H 100 Date Exam was Performed: 07/20/19 Time Exam was Performed: 17:23 I have read and agree with the documentation that has been completed regarding this visit. By signing this record, I attest that the documentation was completed in my physical presence and is an accurate record of the encounter.
== END 2019-07-20 17:53 | disposition home or self-care (01) ==
LOC: DL.ED 15:34
DX: F41.9 Anxiety disorder, unspecified (principal); E66.9 Obesity, unspecified; Z68.38 Body mass index [BMI] 38.0-38.9, adult; Z79.899 Other long term (current) drug therapy
CPT/HCPCS: 36415; 80053; 80305; 80320; 81003; 81025; 85025; 96372; 99284; J2060; G0480

== ENCOUNTER 2019-12-30 13:20 | Emergency (ER) | payer MEDICAID ==
[2019-12-30 14:06] VITALS: BP 133/74; PULSE 97
[2019-12-30 16:03] LABS: ANION GAP 15.1 mEq/L (7-13); CHLORIDE,CL 102 mmol/L (98-107); SODIUM,NA 138 mmol/L (136-145)
[2019-12-30] MEDS ORDERED: Clindamycin HCl 150 MG Cap PO ONE (16:21)
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
== END 2019-12-30 16:32 | disposition home or self-care (01) ==
LOC: DL.ED 13:20
DX: L03.113 Cellulitis of right upper limb (principal); E66.9 Obesity, unspecified; Z68.32 Body mass index [BMI] 32.0-32.9, adult
CPT/HCPCS: 36415; 80053; 80305; 83605; 85025; 96365; 99283; A9270; J0696; J7050

== ENCOUNTER 2021-01-19 10:48 | Emergency (ER) | payer MEDICAID ==
[2021-01-19] MEDS ORDERED: Sodium Chloride 0.9% 10 ML Syringe FLUSH PRN (11:08)
[2021-01-19] MEDS ORDERED: diphenhydrAMINE 50 MG/ML SDV IVPUSH ONE (11:08)
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
[2021-01-19 11:23] VITALS: BP 127/93; PULSE 86
[2021-01-19 11:45] LABS: ANION GAP 13.7 mEq/L (7-13); CHLORIDE,CL 107 mmol/L (98-107); SODIUM,NA 144 mmol/L (136-145)
== END 2021-01-19 12:15 | disposition home or self-care (01) ==
LOC: DL.ED 10:48
DX: R21 Rash and other nonspecific skin eruption (principal); T36.8X5A Adverse effect of other systemic antibiotics, initial encounter; E66.9 Obesity, unspecified; Z68.39 Body mass index [BMI] 39.0-39.9, adult
CPT/HCPCS: 36415; 80053; 85025; 96374; 99283; J1200